=== PATIENT | female | born 1940 | race Caucasian/White ===

== ENCOUNTER → 2016-07-17 | Outpatient (CLI) | payer MEDICARE ==
[~2016-07-17] MED LIST: AMLO10TA82 PO; AMLO1TAB52 PO; ASPI325T4 PO; ATEN100T13 PO; CALC1CAP21 PO; DIGO0.25 PO; DIGO250T PO; DIGO250T15 PO; EZET10TA5 PO; GLIM2TAB PO; GLIM4TAB PO; HCT25T PO; HYDR-33 PO; HYDR1POW18 MC; LOSA100T8 PO; METF500T4 PO; PRAV40TA2 PO; SITA100T PO
[2016-07-17 13:18] LABS: MEAN CORPUSCULAR HEMOGLOBIN 29.1 PG (26.0-34.0); MEAN CORPUSCULAR HGB CONC 35.4 g/dL (31.0-37.0); MEAN CORPUSCULAR VOLUME 82 FL (80-100); MEAN PLATELET VOLUME 10.1 FL (6.0-9.5); PLATELET COUNT 236 10^3uL (150-450)
[2016-07-17 13:49] LABS: ANION GAP 17.6 MEQ/L (3-15); CALCULATED IONIZED CALCIUM 4.8 mg/dL (3.8-4.6); MAGNESIUM* 1.8 mg/dL (1.6-2.3); PHOSPHORUS 3.8 mg/dL (2.4-4.9); TOTAL PROTEIN 6.4 g/dL (6.4-8.5)
[2016-07-17 14:15] LABS: BAND NEUTROPHILS % 0 % (0-6); EOSINOPHILS % 4 % (0-4); LYMPHOCYTES # 1.3 #; MONOCYTES # 0.3 #; MONOCYTES % 3 % (3-11); RBC MORPH NORMAL (NORMAL); SEGMENTED NEUTROPHILS % 81 % (51-67); TOTAL CELLS COUNTED 100
== END ==
LOC: LAB 12:58
PROVIDERS: ATTEND Internal Medicine Hematology & Oncology
DX: I48.91 Unspecified atrial fibrillation (principal)
CPT/HCPCS: 36415; 80053; 82306; 83615; 83735; 84100; 85007; 85027

== ENCOUNTER → 2016-08-17 | Outpatient (CLI) | payer MEDICARE | LOC: LAB 11:46 | PROVIDERS: ATTEND Family Medicine | DX: E11.9 Type 2 diabetes mellitus without complications (principal) | CPT/HCPCS: 36415; 83036 ==

== ENCOUNTER → 2016-10-18 | Outpatient (CLI) | payer MEDICARE ==
[2016-10-18 07:53] LABS: MEAN CORPUSCULAR HGB CONC 33.8 g/dL (31.0-37.0); MEAN CORPUSCULAR VOLUME 86 FL (80-100); MEAN PLATELET VOLUME 10.1 FL (6.0-9.5); PLATELET COUNT 259 10^3uL (150-450); WHITE BLOOD COUNT 12.13 10^3uL (4.0-11.0)
[2016-10-18 08:40] LABS: ALBUMIN 3.9 g/dL (3.4-5.0); CALCULATED IONIZED CALCIUM 4.8 mg/dL (3.8-4.6); MAGNESIUM* 1.7 mg/dL (1.6-2.3); PHOSPHORUS 4.3 mg/dL (2.4-4.9); TOTAL PROTEIN 6.6 g/dL (6.4-8.5)
[2016-10-18 08:59] LABS: BAND NEUTROPHILS % 0 % (0-6); EOSINOPHILS % 4 % (0-4); LYMPHOCYTES # 3.3 #; MONOCYTES # 0.4 #; MONOCYTES % 3 % (3-11); SEGMENTED NEUTROPHILS % 66 % (51-67); TOTAL CELLS COUNTED 100
[2016-10-18 09:00] LABS: RBC MORPH NORMAL (NORMAL)
--- NOTE | 2016-10-18 09:28 | Diagnostic Imaging Report ---
PROCEDURE: CT chest with contrast only. TECHNIQUE: Multiple contiguous axial images were obtained through the chest after administration of intravenous contrast. INDICATION: Breast cancer. FINDINGS: There is an approximately 1.6 cm diameter subpleural nodule in the posterior aspect of the left lower lobe. This demonstrates well-circumscribed margins and was present on the thoracic spine MRI of 04/25/2016. Nodule measured 1.5 cm on the MRI study. No other mass or focal infiltrate is identified. There is diffuse thoracic spondylosis. There is no evidence of pathologically enlarged adenopathy in the pulmonary tonia. Coronary artery calcification is noted. There is an approximately 1.6 x 1.3 cm precarinal lymph node. No pleural fluid is identified. There is a small amount of pericardial fluid noted. There is mild hiatal hernia with mild associated mural thickening. IMPRESSION: 1.6 cm subpleural nodule in the posterior left lower lobe. This has remained essentially unchanged since MRI study of 04/25/2016, however, possibility of metastatic disease is not excluded. Further assessment with PET scan may be of value. There is small amount of pericardial fluid. Note is made of thoracic spondylosis and coronary artery calcification with prominent precarinal lymph node measuring 1.6 x 1.3 cm. This could also be further assessed on PET scan. Note is made of right mastectomy. Dictated by: Dictated on workstation # [id number]
== END ==
LOC: RAD 07:36
PROVIDERS: ATTEND Internal Medicine Hematology & Oncology
DX: C50.411 Malignant neoplasm of upper-outer quadrant of right female breast (principal); M25.561 Pain in right knee; E11.9 Type 2 diabetes mellitus without complications; R91.1 Solitary pulmonary nodule; Z79.899 Other long term (current) drug therapy
CPT/HCPCS: 36415; 71260; 80053; 82306; 83036; 83615; 83735; 84100; 84550; 85007; 85027; Q9967